=== PATIENT | male | born 1980 | race Caucasian/White ===

== ENCOUNTER 2021-02-02 16:59 | Emergency (ER) | payer OTHER ==
[~2021-02-02] VITALS: Ht 170.2 cm; Wt 114.8 kg
[2021-02-02 17:39] VITALS: BP 153/105
--- NOTE | 2021-02-02 17:47 | NUR ---
PT AMBULATED TO BED
--- NOTE | 2021-02-02 18:23 | NUR ---
41yo m referred by PCP to ed to r/o DVT. pt c/o bilateral leg pain, more on the left than the right x 2 weeks. also complains of redness and swelling of left leg. denies trauma or injury to area. pt's work requires standing at all times. pt with hx of right ankle surgery in 2019. pt also known smoker x 10yrs. Pt states 10/10 pressure pain. Redness and edema to left leg noted. pmh:none meds: none nka
--- NOTE | 2021-02-02 18:45 | NUR ---
DR NOWAK AT BEDSIDE EXAMINING PT
[2021-02-02] MEDS ORDERED: KETOROLAC 60 MG/2 ML VIAL IM ONE (18:50)
[2021-02-02] MEDS ORDERED: IBUP-2213 PO (19:06)
[2021-02-02] MEDS ORDERED: CEPH-588 PO (19:06)
[2021-02-02 19:16] VITALS: BP 153/105
--- NOTE | 2021-02-02 19:16 | NUR ---
Patient discharged with v/s stable. Written and verbal after care instructions given and explained. Patient alert, oriented and verbalized understanding of instructions. Ambulatory with steady gait. All questions addressed prior to discharge. ID band removed. Patient advised to follow up with PMD. Rx of KEFLEX AND IBUPROFEN given. Patient educated on indication of medication including possible reaction and side effects. Opportunity to ask questions provided and answered.
== END 2021-02-02 19:16 | disposition home or self-care (01) ==
LOC: MED 16:59
DX: L03.116 Cellulitis of left lower limb (principal); F17.210 Nicotine dependence, cigarettes, uncomplicated
CPT/HCPCS: 93971; 96372; 99284; J1885; Q0092